=== PATIENT | male | born 1980 | race Caucasian/White ===

== ENCOUNTER 2017-05-16 22:40 | Emergency (ER) | payer MEDICAID ==
[2017-05-17 00:49] LABS: BASOPHIL % 0.5 % (0-2); PLATELET COUNT 302 x10^3mcL (130-400); RED CELL DISTRIBUTION WIDTH 12.8 % (11.5-14.5)
[2017-05-17 00:56] LABS: CALCIUM 9.1 mg/dL (8.5-10.1); CHLORIDE SERUM 99 mmol/L (98-107); CREATININE SERUM 1.1 mg/dL (0.7-1.3); GFR1 > 60 mL/min; GLUCOSE SERUM 356 mg/dL (74-106); POTASSIUM SERUM 3.6 mmol/L (3.5-5.1); SODIUM SERUM 133 mmol/L (136-145)
[2017-05-17 01:01] LABS: ALBUMIN 4.3 g/dL (3.4-5.0); ALKALINE PHOSPHATASE 129 U/L (46-116); ALT/SGPT 79 U/L (16-63); AST/SGOT 34 U/L (15-37); BILIRUBIN TOTAL 0.57 mg/dL (0.20-1.00)
[2017-05-17 02:36] VITALS: BP 135/88
== END 2017-05-17 02:36 | disposition home or self-care (01) ==
LOC: ED 22:40
PROVIDERS: Emergency Medicine
DX: E11.9 Type 2 diabetes mellitus without complications (principal)
CPT/HCPCS: 82962; J7030

== ENCOUNTER 2018-12-12 00:06 | Emergency (ER) | payer SELFPAY ==
[~2018-12-12] VITALS: Ht 160 cm; Wt 49.0 kg
[2018-12-12 00:09] VITALS: Ht 160 cm; Wt 49.0 kg
[2018-12-12 04:13] LABS: BASOPHIL % 0.6 % (0-2); PLATELET COUNT 239 x10^3mcL (130-400)
[2018-12-12 05:07] LABS: ALBUMIN 3.6 g/dL (3.4-5.0); ALKALINE PHOSPHATASE 80 U/L (46-116); ALT/SGPT 31 U/L (16-63); AST/SGOT 14 U/L (15-37); BILIRUBIN TOTAL 0.42 mg/dL (0.20-1.00); CALCIUM 8.5 mg/dL (8.5-10.1); CARBON DIOXIDE 25.4 mmol/L (21-32); CHLORIDE SERUM 98 mmol/L (98-107); CREATININE SERUM 0.8 mg/dL (0.7-1.3); GFR1 > 60 mL/min; LIPASE 171 IU/L (73-393); POTASSIUM SERUM 3.7 mmol/L (3.5-5.1); SODIUM SERUM 133 mmol/L (136-145); TOTAL PROTEIN, SERUM 6.5 g/dL (6.4-8.2)
[2018-12-12 05:20] LABS: GLUCOSE SERUM 469 mg/dL (74-106)
[2018-12-12 06:12] VITALS: BP 116/72
== END 2018-12-12 06:12 | disposition home or self-care (01) ==
LOC: ED 00:06
PROVIDERS: Emergency Medicine
DX: E11.65 Type 2 diabetes mellitus with hyperglycemia (principal)
CPT/HCPCS: 82962; J7030

== ENCOUNTER 2019-10-03 15:26 | Inpatient (IN) | payer MEDICAID ==
[~2019-10-03] VITALS: Ht 160 cm; Wt 52.6 kg
[2019-10-03 15:43] VITALS: Ht 160 cm; Wt 52.6 kg
[2019-10-03 16:13] LABS: BASOPHIL % 0.5 % (0-2); PLATELET COUNT 266 x10^3mcL (130-400); RED CELL DISTRIBUTION WIDTH 13.2 % (11.5-14.5)
[2019-10-03 16:58] LABS: ALKALINE PHOSPHATASE 101 U/L (46-116); ALT/SGPT 38 U/L (16-63); AST/SGOT 20 U/L (15-37); BILIRUBIN TOTAL 0.42 mg/dL (0.20-1.00); CALCIUM 9.1 mg/dL (8.5-10.1); CARBON DIOXIDE 23.7 mmol/L (21-32); CHLORIDE SERUM 98 mmol/L (98-107); CREATININE SERUM 0.9 mg/dL (0.7-1.3); GFR1 > 60 mL/min; POTASSIUM SERUM 4.6 mmol/L (3.5-5.1); SODIUM SERUM 134 mmol/L (136-145); TOTAL PROTEIN, SERUM 7.2 g/dL (6.4-8.2)
[2019-10-03 17:03] LABS: GLUCOSE SERUM 477 mg/dL (74-106)
[2019-10-03 18:07] LABS: microscopic required? NO
[2019-10-03 18:18] LABS: urine erythrocyte NEGATIVE (NEGATIVE)
[2019-10-03 18:55] LABS: HDL CHOLESTEROL 38 mg/dL (40-60); LIPASE 174 IU/L (73-393)
[2019-10-03 18:56] LABS: CHOLESTEROL 253 mg/dL (<200)
[2019-10-03] MEDS ORDERED: GLIPIZIDE XL10 M1 PO (19:11)
[2019-10-03 20:25] VITALS: BP 124/70
[2019-10-04 04:09] VITALS: BP 102/58
[2019-10-04 05:59] LABS: BASOPHIL % 0.7 % (0-2); PLATELET COUNT 211 x10^3mcL (130-400); RED CELL DISTRIBUTION WIDTH 13.4 % (11.5-14.5)
[2019-10-04 06:26] LABS: CALCIUM 7.8 mg/dL (8.5-10.1); CARBON DIOXIDE 25.2 mmol/L (21-32); CHLORIDE SERUM 106 mmol/L (98-107); CREATININE SERUM 0.7 mg/dL (0.7-1.3); GFR1 > 60 mL/min; GLUCOSE SERUM 274 mg/dL (74-106); MAGNESIUM 1.8 mg/dL (1.8-2.4); PHOSPHOROUS 2.6 mg/dL (2.5-4.9); POTASSIUM SERUM 4.1 mmol/L (3.5-5.1); SODIUM SERUM 140 mmol/L (136-145)
[2019-10-04 06:49] LABS: AMPHETAMINE QUAL UR NONE DETECTED (See below)
[2019-10-04 09:21] VITALS: BP 108/59
[2019-10-04 10:31] VITALS: BP 108/59
[2019-10-04] MEDS ORDERED: LANTI SQ (11:04)
[2019-10-04] MEDS ORDERED: GLUCOSE TEST S1 EACH MC (11:09)
[2019-10-04] MEDS ORDERED: ATORVASTATIN CA10 M1 PO (11:09)
[2019-10-04] MEDS ORDERED: BLOOD LANCETS1 EACH TOP (11:10)
[2019-10-04] MEDS ORDERED: METER-CHECK1 EACH MC (11:10)
[2019-10-04] MEDS ORDERED: EASY COMFORT ALCO70% TOP (11:11)
[2019-10-04] MEDS ORDERED: NOVI SQ (11:12)
[2019-10-04 12:58] VITALS: BP 111/64
[2019-10-04] MEDS ORDERED: NOVOLOG100 UNIT/1 SQ (22:23)
== END 2019-10-04 15:50 | disposition home or self-care (01) | DRG 420 ==
LOC: ED 15:26 → DU 19:10
PROVIDERS: Emergency Medicine; Specialist; ADMIT Family Medicine
DX: E11.10 Type 2 diabetes mellitus with ketoacidosis without coma (principal); D68.59 Other primary thrombophilia; E87.0 Hyperosmolality and hypernatremia; E86.0 Dehydration; E78.00 Pure hypercholesterolemia, unspecified; Z79.84 Long term (current) use of oral hypoglycemic drugs; Z72.89 Other problems related to lifestyle; Z23 Encounter for immunization; Z68.20 Body mass index [BMI] 20.0-20.9, adult
CPT/HCPCS: 36600; 82962; 90658; G0378; J1815; J7030; Q0092